=== PATIENT | male | born 1955 | race Caucasian/White ===

== ENCOUNTER 2018-12-08 00:18 | Emergency (ER) | payer OTHER, SELFPAY ==
[2018-12-08 00:24] VITALS: BP 177/97; PULSE 90; RESP 18; TEMP 36.5; O2SAT 100; BMI 37.5
--- NOTE | 2018-12-08 00:36 | ED.BACK ---
HPI - Back Pain/Injury General Chief Complaint: Back Pain/Injury Stated Complaint: Pulled muscle in back, cant breathe Time Seen by Provider: 12/08/18 00:23 Source: patient Mode of arrival: ambulatory Limitations: no limitations History of Present Illness HPI Narrative: Patient is a 63-year-old male here for evaluation of right-sided back pain. He states that he has had this particular pain in the past. He states the last time was more than a year ago. He called it a muscle strain. He states the last time he was given a shot of medicine in the emergency department and sent home with a prescription for steroids. He states that helped his symptoms. States that last night he started having the pain again. No specific trauma. He states that it hurts for him to take a big deep breath. As a [id number] pain patch over the area Related Data Previous Rx's Medication Instructions Recorded amoxicillin 875 mg PO BID #20 tab 06/12/13 prednisone 40 mg PO DAILY 5 Days #10 tab 12/08/18 Allergies Allergy/AdvReac Type Severity Reaction Status Date / Time ASA (ASPIRIN) Allergy Intermediate HIVES Uncoded 12/26/17 12:21 Review of Systems Constitutional Denies fever(s) Cardiovascular Reports dyspnea (Secondary to the pain) Respiratory Reports dyspnea (Secondary to the pain) Musculoskeletal Reports back pain Integumentary/Breasts Denies rash Hematologic/Lymphatic Denies easy bleeding and Denies easy bruising PFSH Medical History Kidney stones (Acute) Social History marital status: lives independently: Yes Social History marital status: lives independently: Yes Exam Initial Vital Signs Initial Vital Signs: Vital Signs Temperature 97.7 F 12/08/18 00:24 Pulse Rate 90 12/08/18 00:24 Respiratory Rate 18 12/08/18 00:24 Blood Pressure 177/97 H 12/08/18 00:24 Pulse Oximetry 100 12/08/18 00:24 Const General: cooperative, well groomed and No acute distress Orientation: alert, awake and oriented x3 Resp Effort & Inspection: normal respiratory effort Auscultation: clear to auscultation bilaterally Other: Somewhat splinting on deep breath secondary to the pain Cardio Rate: regular rate Rhythm: regular rhythm Back/Spine/Pelvis Thoracic/Lumbar Spine: paraspinal tenderness (Right-sided thoracic paraspinal tenderness over the rhomboids), No thoracic spinal tenderness and lumbar spinal tenderness Skin Rashes: no rashes Neuro General: alert and awake Cognition: normal cognition Speech: speech normal Gait: normal gait Extrem General: normal to inspection and capillary refill normal Course Orders Ordered: Discontinued Medications Hydromorphone HCl (Dilaudid) 2 mg IM NOW ONE Stop: 12/08/18 00:38 Vital Signs - 8 hr 12/08/18 00:24 Temperature 97.7 F Pulse Rate 90 Respiratory Rate 18 Blood Pressure 177/97 H Pulse Oximetry 100 MDM - Back Pain/Injury MDM Narrative Medical decision making narrative: Reproducible right-sided back tenderness. Low suspicion for ACS, low suspicion for PE, low suspicion for fracture, doubt pneumonia. Will hold on x-ray. Patient was given pain medication here in the emergency department. Will send home with prescription for prednisone. He states this has worked for him in the past. He was given return precautions. He expressed understanding and agreement plan. Discharge Plan Departure Patient Disposition: Home Clinical Impression: Thoracic back pain Qualifiers: Chronicity: acute Back pain laterality: right Qualified Code(s): M54.6 - Pain in thoracic spine Instructions: DI for Back Spasm Activity Restrictions/Additional Instructions: Take the medications as directed. Return to the emergency department for any new or worsening symptoms Prescriptions: New prednisone 20 mg tablet 40 mg PO DAILY 5 Days Qty: 10 RF: 0 No Action amoxicillin 875 MG tablet 875 mg PO BID Qty: 20 RF: 0 Referrals: Sidney Montes PA-C [Primary Care Provider] -
[2018-12-08] MEDS: HYDROMORPHONE 2 MG INJ IM (00:47)
[2018-12-08 01:40] VITALS: BP 131/88; PULSE 76; RESP 17; O2SAT 93
[2018-12-08] MEDS: predniSONE 20 MG TABLET 40 MG PO (01:44)
== END 2018-12-08 01:40 | disposition home or self-care (01) ==
PROVIDERS: Emergency Provider Emergency Medicine
DX: M54.6 Pain in thoracic spine (principal)
CPT/HCPCS: 99282; 99283; J1170